=== PATIENT | female | born 1995 | race Caucasian/White ===

== ENCOUNTER → 2024-02-12 | Outpatient (CLI) | payer MEDICAID | END | disposition home or self-care (01) | LOC: RAD 17:11 | PROVIDERS: ATTEND Nurse Practitioner Family | DX: M41.85 Other forms of scoliosis, thoracolumbar region (principal) | CPT/HCPCS: 72084 ==

== ENCOUNTER → 2024-03-19 | Outpatient (CLI) | payer MEDICAID | END | disposition home or self-care (01) | LOC: MRI 10:02 | PROVIDERS: ATTEND Physician Assistant Medical | DX: M43.8X6 Other specified deforming dorsopathies, lumbar region (principal); M41.9 Scoliosis, unspecified; M54.50 Low back pain, unspecified | CPT/HCPCS: 72148 ==